=== PATIENT | female | born 1995 | race Caucasian/White ===

== ENCOUNTER 2016-09-10 06:55 | Emergency (ER) | payer OTHER, MEDICARE, MEDICAID ==
[~2016-09-10] VITALS: Ht 170.2 cm; Wt 64.3 kg
[2016-09-10 06:55] VITALS: TEMP 99.1; Ht 170.2 cm; Wt 64.3 kg
--- OUTSIDE RECORDS SUMMARY | 2016-09-10 07:00 | XMS REPORT | Continuity of Care Document ---
Author Author Cielo Buck Address Unknown Phone Unavailable Care Team Providers Care Diving Board Assembler Name Role Phone [employer] Unavailable Unavailable Problems Medications Medication Details Route Status Patient Instructions Ordering Provider Order Date Source influenza virus vaccine, live, trivalent 04/13/12 11: 23:00 [employer] RESIDENTIAL DRIVER, Routine, 1 spray, Each Nostril, 1 time only, 1 dose(s), Stop date 12/16 11:23:00 [employer] LO[employer]ER RESIDENTIAL DRIVER Inactive [facility] Allergies, Adverse Reactions, Alerts Substance Category Reaction Severity Reaction type Status Date Reported Comments Source Latex propensity to adverse reactions to substance Adverse Reaction [facility] Immunizations Immunization Date Given Site Status Last Updated Comments Source influenza live, trivalent (LAIV) 04/13/2012 completed [facility] influenza virus, inactivated (TIV) 04/23/2010 completed [facility] Results Vital Signs Encounters Location Location Details Encounter Type Encounter Number Reason For Visit Attending Provider ADM Date DC Date Status Source [facility] REF [id number] Neurogenic Bladder Wesley Flower [facility] CLI [id number] Unknown Provider 05/12/2013 [facility] Procedures Plan of Care Social History Assessment and Plan Family History Value Date Source Advance Directives Order Name Results Value Date Source
--- OUTSIDE RECORDS SUMMARY | 2016-09-10 07:19 | XMS REPORT | Continuity of Care Document ---
Author Author Cielo Buck Address Unknown Phone Unavailable Care Team Providers Care Parts Technician Name Role Phone [employer] Unavailable Unavailable Problems Medications Medication Details Route Status Patient Instructions Ordering Provider Order Date Source influenza virus vaccine, live, trivalent 04/13/12 11: 23:00 NYLON WINDER, Routine, 1 spray, Each Nostril, 1 time only, 1 dose(s), Stop date 12/16 11:23:00 NYLON WINDER Inactive [facility] Allergies, Adverse Reactions, Alerts Substance Category Reaction Severity Reaction type Status Date Reported Comments Source Latex propensity to adverse reactions to substance Adverse Reaction [facility] Immunizations Immunization Date Given Site Status Last Updated Comments Source influenza live, trivalent (LAIV) 04/13/2012 completed [facility] influenza virus, inactivated (TIV) 04/23/2010 completed [facility] Results Vital Signs Encounters Location Location Details Encounter Type Encounter Number Reason For Visit Attending Provider ADM Date DC Date Status Source [facility] REF [id number] Neurogenic Bladder Wesley Flower [facility] CLI [id number] Unknown Provider 05/12/2013 [facility] Procedures Plan of Care Social History Assessment and Plan Family History Value Date Source Advance Directives Order Name Results Value Date Source
[2016-09-10 07:46] LABS: HCT - HEMATOCRIT 34.2 % (36-46); HGB - HEMOGLOBIN 10.7 GM/DL (12-16); MEAN CORPUSCULAR HGB 22.7 UUG (26-34); MEAN CORPUSCULAR HGB CONC(MCHC 31.3 GM/DL (31-37); MEAN CORPUSCULAR VOLUME 72.5 UM3 (80-100); MEAN PLATELET VOLUME 11.5 UM3 (9.4-12.4); RED BLOOD COUNT 4.72 M/MM3 (4.00-5.20); WBC - WHITE BLOOD COUNT 13.2 T/MM3 (4.5-11.0)
--- NOTE | 2016-09-10 07:48 | ERPDOC ---
Departure Disposition Decision Date: Sep 10, 2016 Disposition Decision Time: 10:30 Disposition: 01 DISCHARGED HOME, SELF-CARE Impression Impression Impression: Primary Impression: Urinary retention Additional Impression: UTI (urinary tract infection) Urinary tract infection type: site unspecified Severity: Mild Condition: Improved Seen By: Physician only Referrals: ANTHONY ARCEO MD (PCP) 2 Days NANDA REESE MD 2 Days Patient Instructions: Acute Urinary Retention in Women (ED) Problems/Meds/Labs Reviewed?: Yes Medications reviewed and manag: Yes Follow up care ordered?: Yes Mental Status: Alert, Oriented Scripts Ondansetron (Zofran Odt) 4 Mg Tab.rapdis 4 MG PO Q4HR Y for NAUSEA &/OR VOMITING for 2 Days, #12 TAB 0 Refills Prov: JEMAL BROWN DO 09/10/16 Hydrocodone/Acetaminophen ([place] 5-325 Tablet) 5-325 Tablet 1 TAB PO Q4HR Y for PAIN for 2 Days, #12 TAB 0 Refills Prov: JEMAL BRONW DO 09/10/16 Ciprofloxacin HCl (Ciprofloxacin HCl) 500 Mg Tablet 500 MG PO BID for 10 Days, #20 TAB 0 Refills Prov: JEMAL BROWN DO 09/10/16 HPI - General Medical General Chief Complaint: Flank Pain Stated Complaint: POSSIBLE KINDEY INFECTION/UNABLE TO URINATE Time Seen by Provider: 07:09 Source: patient Exam Limitations: no limitations HPI - General Medical Initial Comments 20-year-old female presents to the emergency department with a chief complaint of inability to urinate. Patient also notes feeling a fullness which seems to radiate to her right flank. Pain is moderate. She does not note anything that makes the pain any better or any worse. She denies any other complaints or associated symptoms. She was at home when her symptoms began 1 day ago. Symptoms have been persistent in nature since onset. Symptoms have had a gradual progression. She denies any other complaints or associated symptoms. Patient has not followed up with urology or nephrology since she was a teenager at [facility]. Patient has had multiple procedures due to congenital renal malformation and abnormalities. She denies any trauma, travel, poorly prepared food, recent antibiotic use. There are no other complaints or associated symptoms. Occurred At: home Onset: Gradual Allergies: Coded Allergies: latex (Verified Allergy, Unknown, 09/10/16) Past History Past Medical History PMH Comments Congenital renal malformation. Surgical History Surgical History Comments Renal system surgeries Family History Family History: Negative Vaccines Hx Influenza Vaccination: Yes (LAST IN FALL 2006) Hx Pneumococcal Vaccination: No Social History Smoking Status: Never smoker Substance Use Type: does not use Alcohol Intake: none Review of Systems Constitutional Constitutional: DENIES: chills, fever Eyes General: DENIES: erythema, exudate Lids/Accessories: DENIES: erythema, swelling Vision: DENIES: acuity, blurring ENMT Ears: DENIES: drainage, erythema Hearing: DENIES: hearing loss Balance: DENIES: ataxia, falling to one side Sinuses: DENIES: congestion, pain Nose: DENIES: nosebleeds, pain Mouth/Throat: DENIES: painful swallowing, sore throat Teeth: DENIES: pain Jaw: DENIES: pain Cardiovascular Cardiac: DENIES: chest pain, dyspnea on exertion Rhythm/Rate: DENIES: irregular beat, palpitations Vascular: DENIES: pedal edema, unilateral swelling Pulmonary Respiratory: DENIES: cough, dyspnea, pleuritic chest pain, sputum GI Upper Abdomen: DENIES: nausea, pain, vomiting Lower Abdomen: DENIES: diarrhea, pain General: DENIES: dysuria, frequency Musculoskeletal General: DENIES: pain, tenderness Integumentary Skin: DENIES: itching, rash Neurological General: DENIES: headache, numbness, weakness Psychiatric Psychiatric: DENIES: emotional instability, suicidal ideation/attempt Hematologic/Lymphatic Hematologic/Lymphatic: DENIES: frequent nosebleeds, lymphadenopathy Allergic/Immunological Allergic/Immunoligical: DENIES: allergic reactions, hives Physical Exam General General Nourishment: well nourished, well developed, appears stated age, no acute distress, adult General Body Habitus: well groomed Vitals and Pain First Documented Vital Signs Date Time Temp Pulse Resp B/P Pulse Ox O2 Delivery O2 Flow Rate FiO2 09/10/16 06:55 99.1 123 20 139/91 98 Room Air Weight: Kilograms: 64.300 Height (feet): 5 Height (inches): 7.00 Triage Pain Scale: RN VS reviewed by Provider: Yes Normal Exams: Head: Normocephalic w/o trauma Eyes: Pupils are PERRLA w/ EOMI, No scleral icterus, irritation, or foreign bodies noted ENMT: No facial trauma, nasal exudates, pharyngeal erythema, or exudates are noted Dental: No fractured, loose, or missing teeth noted Neck: Full range of motion, without adenopathy, JVD, bruits or thyromegaly Chest/Resp: Clear all bangura, with good airflow, and symmetry bilaterally CV: Regular rate and rhythm, without murmur or gallop, Pulses 2+ all extremities, capillary refill, <2 seconds all ext., no pedal edema noted Abdomen: Bowel sounds positive, soft, non-tender, non-distended, no hepatosplenomegaly, masses or bruits noted Lymphatic: No lymphadenopathy, or lymphedema noted Musculoskeletal: No tenderness, or deformity noted, good range of motion, all extremities Integumentary: No rashes, hives, or bruising noted, hair and nails, without abnormality Neurologic: Patient is alert, and oriented, cranial nerves, motor/sensory/ cerebellar, exams w/o gross deficits, to observation Psychiatric: Patient exhibits, appropriate attention, emotion and affect Abdomen (brief) Comments No CVA tenderness. Urostomy tube is clean and dry and intact without signs of infection. Differential Diagnoses Considering: Medication Effect, Metabolic, UTI, Other (kidney stone/acute renal failure) Progress Results/Orders Orders Procedure Category Date Status Time Cbc W/Manual LAB 09/10/16 Complete Differential 07:09 Cmp - Comprehensive LAB 09/10/16 Complete Metabolic Lipase LAB 09/10/16 Complete Catheterize For Ua REECE 09/10/16 Complete 07:09 LAB 09/10/16 Complete Qualitative, Urine 07:09 Ct Renal W/O Contrast CT 09/10/16 Resulted 07:09 LAB 09/10/16 Complete Qualitative, Serum 07:43 UA, LAB 09/10/16 Complete Dip&Micro(Complete) & 08:21 Fentanyl (Fentanyl) PHA 09/10/16 Complete 08:45 Ondansetron Inj PHA 09/10/16 Complete (Zofran) 08:45 Urine Culture TARA 09/10/16 In Process 08:38 Blood Culture TARA 09/10/16 In Process 09:14 Lactate - Lactic Acid LAB 09/10/16 Complete Procalcitonin LAB 09/10/16 Complete 09:14 Ciprofloxacin (Cipro) PHA 09/10/16 Complete 10:45 Lab Results Laboratory Tests Test 09/10/16 07:34 09/10/16 07:43 4/6/17 08:21 09/10/16 09:21 White Blood Count 13.2T/MM3 Red Blood Count 4.72M/MM3 Hemoglobin 10.7GM/DL Hematocrit 34.2% Mean Corpuscular Volume 72.5UM3 Mean Corpuscular Hemoglobin 22.7UUG Mean Corpuscular Hemoglobin Concent 31.3GM/DL RDW Standard Deviation 47.0FL Platelet Count 304T/MM3 Mean Platelet Volume 11.5UM3 Neutrophils % (Manual) 83.0% Band Neutrophils % 3.0% Lymphocytes % (Manual) 11.0% Monocytes % (Manual) 3.0% Absolute Neutrophils (Manual) 11.0T/MM3 Band Neutrophils # 0.4T/MM3 Lymphocytes # (Manual) 1.5T/MM3 Monocytes # (Manual) 0.4T/MM3 Red Cell Morphology Comment Normal Turbidity < 20 Sodium Level 142MEQ/L Potassium Level 4.5MEQ/L Chloride Level 106MEQ/L Carbon Dioxide Level 22MEQ/L Anion Gap 14MEQ/L Blood Urea Nitrogen 17.0MG/DL Creatinine 1.1MG/DL Glomerular Filtration Rate Calc 63 BUN/Creatinine Ratio 16RATIO Glucose Level 134MG/DL Calculated Osmolality 277MOSM/KG Calcium Level 9.4MG/DL Total Bilirubin 0.60MG/DL Icterus Index < 2 Aspartate Amino Transf (AST/SGOT) 19U/L Alanine Aminotransferase (ALT/SGPT) 26U/L Alkaline Phosphatase 64U/L Total Protein 7.5G/DL Albumin 4.0G/DL Globulin 3.5G/DL Albumin/Globulin Ratio 1.1RATIO Lipase 47U/L Chemistry Specimen Hemolysis < 15 Human Chorionic Gonadotropin, Qual Negative Urine Collection Type Wu indwelling Urine Color Yellow Urine Turbidity Sl cloudy Urine pH 6.0 Urine Specific [place] 1.025 Urine Protein Trace Urine Glucose (UA) Negative Urine Ketones Negative Urine Blood 1+ Urine Nitrite Positive Urine Bilirubin Negative Urine Urobilinogen 0.2EU/DL Urine Leukocyte Esterase 2+ Urine RBC None seen/HPF Urine WBC 20-30/HPF Urine Bacteria 3+ Urine Culture Indicated Cult reflexed &setup Urine Test Negative Plasma Lactate 1.2MMOL/L Test 09/10/16 09:29 Procalcitonin < 0.05NG/ML Medications Current ED Medications Fentanyl (Fentanyl) 50 mcg O ONCE IV Last administered on 09/10/16 09:29; Start 4/6/17 at 08:45; Stop 09/10/16 at 08:46; Status DC Ondansetron HCl (Zofran) 4 mg O ONCE IV Last administered on 09/10/16 09:26; Start 09/10/16 at 08:45; Stop 09/10/16 at 08:46; Status DC Ciprofloxacin (Cipro) 500 mg O ONCE PO Last administered on 09/10/16 10:44; Start 09/10/16 at 10:45; Stop 09/10/16 at 10:46; Status DC Progress Progress Labs/imaging were discussed in detail with the patient and family and questions are answered. Patient is given parental narcotic and antiemetic medications intravenously which improved her symptoms. Patient is discussed with Dr. Reese of urology who comes to the emergency department and evaluates the patient. Dr. Reese flushes the patient's urostomy tube and the patient is now producing urine without difficulty. Patient is recommended to receive intravenous IV antibiotics while in the emergency Department. Patient and family declined IV antibiotics. Patient is started on Cipro 500 mg by mouth twice a day times 14 days. She is discharged home in improved condition. She is to follow up as instructed. She is to return to the emergency Department if her condition worsens or changes in any manner. Patient is in agreement with the current plan of management. She is to follow up as instructed. Close follow-up appointment with Dr. Reese is obtained for Wednesday. CT CT : CT: Abd/Pelvis no contrast Interpretation: Abnormal (no sign of acute obstruction. Chronically dilated right kidney and ureter. Doubling of left renal collecting system. No acute processes noted.), Reviewed Written Report JEMAL BROWN DO Sep 10, 2016 07:47
[2016-09-10 07:54] LABS: ALBUMIN/GLOBULIN RATIO 1.1 RATIO (1.1-2.2); ALKALINE PHOSPHATASE 64 U/L (38-126); ALT (SGPT) 26 U/L (9-52); ANION GAP 14 MEQ/L (5-15); AST (SGOT) 19 U/L (14-36); BUN/CREATININE RATIO 16 RATIO (6-26); CALCIUM 9.4 MG/DL (8.4-10.2); CHLORIDE 106 MEQ/L (98-107); CO2 - CARBON DIOXIDE 22 MEQ/L (22-30); CREATININE 1.1 MG/DL (0.7-1.2); GLOMERULAR FILTRATION RATE 63; GLUCOSE 134 MG/DL (65-110); LIPASE 47 U/L (23-300); POTASSIUM 4.5 MEQ/L (3.6-5); SODIUM 142 MEQ/L (134-144); TOTAL PROTEIN 7.5 G/DL (6.3-8.2)
--- NOTE | 2016-09-10 08:00 | NUR ---
CT PT. TO CT PER CART.
--- NOTE | 2016-09-10 08:10 | NUR ---
CT PT. RETURNED FROM CT.
[2016-09-10 08:11] LABS: BAND NEUTROPHILS # 0.4 T/MM3; LYMPHOCYTES # (MANUAL) 1.5 T/MM3 (1-4.8); MONOCYTES # (MANUAL) 0.4 T/MM3 (0-0.8); TOTAL CELLS COUNTED 100 %
[2016-09-10] MEDS ORDERED: NO KNOWN MEDS (08:11)
[2016-09-10 08:15] VITALS: BP 136/83
[2016-09-10 08:27] LABS: BLOOD, URINE 1+ (NEGATIVE); COLOR,URINE YELLOW (YELLOW); LEUKOCYTE ESTERASE ,URINE 2+ (NEGATIVE); NITRITE,URINE POSITIVE (NEGATIVE); UROBILINOGEN,URINE 0.2 EU/DL (NORMAL)
[2016-09-10 08:36] LABS: RBC,URINE NONE SEEN /HPF (0-3)
[2016-09-10 08:38] LABS: BACTERIA,URINE 3+ (NEGATIVE); WBC,URINE 20-30 /HPF (0-5)
[2016-09-10] MEDS ORDERED: FENTANYL 100mcg/2ml INJECTION IV ONE (08:45)
[2016-09-10] MEDS ORDERED: ONDANSETRON 4mg/2ml INJECTION IV ONE (08:45)
--- NOTE | 2016-09-10 08:45 | DI ---
Indication: ITS.REASON: R flank pain PROCEDURE: CT RENAL W/O CONTRAST: Encounter: Initial Comparison: None Technique: Axial CT images were performed through the abdomen and pelvis without intravenous contrast. Coronal and sagittal two-dimensional reformats. Automated Exposure Control and Iterative Reconstruction dose reducing techniques were utilized. Findings: The lung bases are clear. The unenhanced contours of the liver are unremarkable. The gallbladder is within normal limits. The spleen, pancreas and adrenal glands are normal. There is high attenuation material in the left renal collecting system measuring 35 Hounsfield units. 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 Reconstructed bladder is distended. Right kidney appears chronically severely abnormal with severe chronic appearing hydronephrosis with a massively dilated calyces and renal cortical thinning. Severely dilated renal pelvis and right ureter. No clear cause of acute obstruction. The uterus is grossly normal. Small amount of free pelvic fluid. No evidence of a bowel obstruction. The appendix appears normal. Bone windows are unremarkable. Impression: 1. Abnormal density of material in the duplicated left renal collecting system. Findings could relate to proteinaceous debris in the urine, infected urine with vesicoureteral reflux or hematuria. Recommend correlation with urinalysis. 2. Multiple abnormalities related to the patient's complex renal and surgical history with a chronically obstructed probably nonfunctional severely hydronephrotic right kidney. .
--- NOTE | 2016-09-10 09:00 | NUR ---
DR DR. REED HERE AND IRRIGATING PTS. BLADDER. INFORMS THE PT. OF THE IMPORTANCE OF DOING THIS DAILY AND OF KEEPING HER BLADDER EMPTY AND WHAT COULD HAPPEN IF SHE DOES NOT. PT. FEEL MUCH BETTER ONCE HE EMPTIED HER BLADDER.
--- NOTE | 2016-09-10 09:20 | NUR ---
IVL IV LOCK STARTED AND BLOOD DRAWN FOR MORE LAB WORK.
--- NOTE | 2016-09-10 09:30 | NUR ---
MEDS ZOFRAN AND FENTANYL GIVEN IV FOR NAUSEA AND PAIN THAT SHE RATES A 4.
[2016-09-10] MEDS ORDERED: HYDR-4246 PO (10:32)
[2016-09-10] MEDS ORDERED: ONDA4TAB7 PO (10:32)
[2016-09-10] MEDS ORDERED: CIPR-280 PO (10:32)
[2016-09-10] MEDS ORDERED: CIPROFLOXACIN 500 MG TABLET PO ONE (10:45)
--- NOTE | 2016-09-10 10:50 | NUR ---
DISMISSAL NOTE DISMISSAL INSTRUCTIONS GIVEN TO PT. AND NO FURTHER QUESTIONS. 60 CC SYRINGE AND NORMAL SALINE SENT HOME WITH PT. TO FLUSH BLADDER DR. REED RECOMMENDED. RX. X 3 SENT HOME WITH PT. PT. LEFT ED AMBULATORY WITH GRANDFATHER.
[2016-09-10 12:40] VITALS: PULSE 78; RESP 20; O2SAT 100
--- NOTE | 2016-09-10 20:10 | CONSF ---
DATE OF CONSULTATION 09/10/2016 REFERRING PHYSICIAN Emergency room physician. REASON FOR CONSULTATION Urinary retention. HISTORY OF PRESENT ILLNESS Patient is a 20-year-old female. She has not seen a urologist in some time but she has had bladder reconstructive surgery as a child. This was done in [place] by Dr. Salazar. She had a form of spina bifida with neurogenic bladder. She had a bladder augmentation and a catheterizable bladder stoma. She was with her mother in the emergency room for worsening lower abdominal pain. She has had poor drainage out of her catheter site. She voids per the urethra. She is supposed to be catheterizing her bladder stoma at least three times a day - she has been noncompliant. She wears an indwelling catheter at night to help continuously drain it and stay dry at night. She placed a catheter in early this morning and has had minimal output. She has had worsening abdominal pain. CT scan showed a distended augmented bladder, no obvious perforation. Some chronic hydronephrosis from a minimally functioning right kidney and some mild inflammation of the left kidney but no obvious stones or left renal obstruction. PAST MEDICAL HISTORY 1. Neurogenic bladder. 2. Spina bifida. PAST SURGICAL HISTORY 1. Bladder augmentation. 2. Catheterizable bladder stoma. SOCIAL HISTORY She lives with her parents. 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 No alcohol. No IV drug use. FAMILY HISTORY Noncontributory. REVIEW OF SYSTEMS As per HPI - otherwise negative. MEDICATIONS See the computer for a full list of medications. ALLERGIES Latex. PHYSICAL EXAM VITAL SIGNS: She is afebrile. Vital signs are stable. GENERAL: She is awake and alert. She is in mild distress from some abdominal discomfort. HEENT: Head is normocephalic, atraumatic. No scleral icterus. NECK: Supple. No lymphadenopathy. HEART: Tachycardic but regular. LUNGS: Clear. ABDOMEN: Soft. Tender in the lower quadrants. No guarding or rebound. EXTREMITIES: No cyanosis, clubbing or edema. DIAGNOSTIC STUDIES I did review a CT scan that showed a right kidney with minimal function, a very thin parenchyma, some chronic hydronephrosis. Left kidney was a little bit enlarged compared to the right but there was no obvious hydronephrosis or stones. Maybe some perinephric stranding. Bladder was pretty severely distended. It is an augmented bladder. No obvious perforation or free fluid around the bladder or in the pelvis. ASSESSMENT 20-year-old female with neurogenic bladder and bladder augmentation now with retention. PLAN I passed a 14-Fr catheter and I inflated the balloon. I irrigated some mucus out and then I drained off about 1500 mL of clear urine. She felt much better immediately. Would leave this catheter in. I showed her how to irrigate it. She needs to start doing this once a day to help decrease mucus. She will be sent home with antibiotics. I will see her back in about three to four days in my office to remove the indwelling catheter and then she can go back to her regular regimen of catheterizing. SOPHIE
== END 2016-09-10 10:50 | disposition home or self-care (01) ==
LOC: ED 06:55
DX: R33.9 Retention of urine, unspecified (principal); N39.0 Urinary tract infection, site not specified
CPT/HCPCS: 36415; 51702; 74176; 80053; 81001; 81025; 83605; 83690; 84145; 84703; 85007; 85027; 87040; 87086; 96374; 96375; 99284; J2405; J3010